=== PATIENT | female | born 1950 | race Caucasian/White ===

== ENCOUNTER 2019-05-16 16:24 | Inpatient (IN) | payer MEDICARE ==
[2019-05-16] MEDS: Sodium Chloride 0.9% 1,000 ML IV SCH ×2 (16:25→19:30)
[2019-05-16] MEDS ORDERED: Aspirin Chewable 81 MG TAB ONE (17:08)
[2019-05-16] MEDS ORDERED: Acetaminophen 500 MG TAB ONE (17:08)
[2019-05-16 17:29] LABS: #Basophils 0.1 thou/uL (0.0-0.2); #Eosinphils 0.1 thou/uL (0.0-0.7); #Lymphocytes 1.5 thou/uL (1.20-3.40); #Monocytes 0.6 thou/uL (0.11-0.59); #Neutrophils 6.8 thou/uL (1.40-6.50); %Basophils 0.8 % (0.0-1.0); %Eosinophils 1.1 % (0.0-10.0); %Lymphocytes 16.6 % (21.0-51.0); %Monocytes 6.7 % (0.0-10.0); %Neutrophils 74.9 % (42.0-75.0); Hemoglobin 12.2 g/dL (12.0-16.0); Mean Corpuscular HGB CONC 32.7 g/dL (32.0-36.0); Mean Corpuscular Hemoglobin 28.7 pg (27.0-31.0); Mean Corpuscular Volume 87.9 fL (78.0-98.0); Mean Platelet Volume 6.5 fL (7.4-10.4); Platelet Count 290 thou/uL (130-400); RBC Distribution Width 11.9 % (11.5-14.5); Red Blood Cell (RBC) Count 4.26 mill/uL (4.20-5.40)
[2019-05-16 17:31] LABS: ALT (SGPT) 11 U/L (8-55); AST (SGOT) 15 U/L (5-34); Albumin 3.7 g/dL (3.4-4.8); Alkaline Phosphatase 69 U/L (40-150); Anion Gap 14 mmol/L (10-20); BUN (Urea Nitrogen) 12 mg/dL (9.8-20.1); Bilirubin, Total 0.4 mg/dL (0.2-1.2); Calc. Creatinine Clearance 0 mL/min (70-130); Calcium 9.2 mg/dL (7.8-10.44); Carbon Dioxide 28 mmol/L (23-31); Chloride 99 mmol/L (98-107); Estimated GFR-MDRD 73; Globulin 3.6 g/dL (2.4-3.5); Glucose 111 mg/dL (80-115); Lipase 6 U/L (8-78); Protein, Total 7.3 g/dL (6.0-8.3); Sodium 138 mmol/L (136-145)
[2019-05-16] MEDS ORDERED: cefTRIAXone\\ROCEPHIN 1 GM VIAL ONE (18:07)
[2019-05-16] MEDS ORDERED: Sodium Chloride 0.9% 100 ML ONE (18:07)
[2019-05-16] MEDS ORDERED: Azithromycin 500 MG VIAL ONE (18:32)
[2019-05-16] MEDS ORDERED: Promethazine 25 MG TAB ONE (18:53)
--- NOTE | 2019-05-16 20:42 | RAD ---
PORTABLE CHEST: 05/16/19 There is an infiltrate in the right lung, most likely in the superior segment of the right lower lobe . It might be in the base of the right upper lobe. It is somewhat peripheral in location. The right h ilum is a little prominent, but this could be due to some slightly enlarged nodes or a prominent pulm onary artery. Pneumonia is presumed for the moment, but this must be followed to complete resolution to be sure that there is no underlying pathology. Additionally, there is a little streaking adjacent to the cardiac apex, so I cannot exclude a small lingular infiltrate either. Less likely would be an infiltrate due to pulmonary embolism given its peripheral nature. IMPRESSION: Presumed pneumonia in the right lung and possibly the lingula. Follow-up to complete resolution will be very important in this patient. If it does not resolve adequately, then a CT will be needed to exc lude underlying pathology. Code T POS: HOME
[2019-05-16] MEDS: ALPRAZolam 0.5 MG TAB PO SCH (21:21)
[2019-05-16] MEDS: Famotidine 20 MG TAB PO SCH (21:21)
[2019-05-16] MEDS ORDERED: Acetaminophen 325 MG TAB PO PRN (21:45)
[2019-05-16] MEDS ORDERED: Ondansetron ODT 4 MG TAB SL PRN (21:45)
[2019-05-16] MEDS ORDERED: Ondansetron PF 4 MG/2 ML Vial IVP PRN (21:45)
[2019-05-16 22:23] VITALS: BMI 43.4
[2019-05-17] MEDS: HYDROcodone/Acetaminophen 10/325 mg Tablet PO PRN ×4 (00:11→18:06)
[2019-05-17] MEDS: Sodium Chloride 0.9% 1,000 ML IV SCH (01:31)
[2019-05-17 05:59] LABS: #Basophils 0.1 thou/uL (0.0-0.2); #Eosinphils 0.3 thou/uL (0.0-0.7); #Lymphocytes 1.5 thou/uL (1.20-3.40); #Monocytes 0.8 thou/uL (0.11-0.59); #Neutrophils 5.3 thou/uL (1.40-6.50); %Basophils 1.5 % (0.0-1.0); %Eosinophils 4.2 % (0.0-10.0); %Lymphocytes 18.2 % (21.0-51.0); %Monocytes 10.4 % (0.0-10.0); %Neutrophils 65.6 % (42.0-75.0); Hemoglobin 10.3 g/dL (12.0-16.0); Mean Corpuscular HGB CONC 32.3 g/dL (32.0-36.0); Mean Corpuscular Hemoglobin 28.6 pg (27.0-31.0); Mean Corpuscular Volume 88.3 fL (78.0-98.0); Platelet Count 285 thou/uL (130-400); Red Blood Cell (RBC) Count 3.59 mill/uL (4.20-5.40); White Blood Cell (WBC) Count 8.1 thou/uL (4.8-10.8)
[2019-05-17] MEDS: Mometasone/Formoterol 60 PUFF AER INH SCH ×2 (06:02→21:20)
[2019-05-17 06:11] LABS: ALT (SGPT) 10 U/L (8-55); AST (SGOT) 11 U/L (5-34); Alkaline Phosphatase 57 U/L (40-150); Anion Gap 12 mmol/L (10-20); BUN (Urea Nitrogen) 8 mg/dL (9.8-20.1); Bilirubin, Total 0.2 mg/dL (0.2-1.2); Calc. Creatinine Clearance 138 mL/min (70-130); Calcium 8.2 mg/dL (7.8-10.44); Carbon Dioxide 28 mmol/L (23-31); Chloride 103 mmol/L (98-107); Estimated GFR-MDRD 90; Glucose 93 mg/dL (80-115); Magnesium 1.5 mg/dL (1.6-2.6); Potassium 3.1 mmol/L (3.5-5.1); Sodium 140 mmol/L (136-145)
[2019-05-17] MEDS: ALPRAZolam 0.5 MG TAB PO SCH ×2 (09:24→21:19)
[2019-05-17] MEDS: Saccharomyces boulardii 250 MG CAP PO SCH (09:25)
[2019-05-17] MEDS: DULoxetine 30 MG CAP PO SCH (09:25)
[2019-05-17] MEDS: Hydrochlorothiazide 25 MG TAB PO SCH (09:25)
[2019-05-17] MEDS: Famotidine 20 MG TAB PO SCH ×2 (09:25→21:19)
[2019-05-17] MEDS: Aspirin Chewable 81 MG TAB PO SCH (09:25)
[2019-05-17] MEDS: Lisinopril 20 MG TAB PO SCH (09:26)
[2019-05-17] MEDS ORDERED: Potassium Chloride 20 MEQ TAB PO SCH (09:45)
--- NOTE | 2019-05-17 10:34 | HP ---
CHIEF COMPLAINT: Pneumonia. HISTORY OF PRESENT ILLNESS: A 68-year-old female presented to the [facility] Emergency Department yesterday afternoon with complaints of an intermittent fever, headache, and productive cough that has been present for the last week; she reports the T-max to be 102.3. She does have a history of asthma and has noticed to have wheezing. She reports to have developed chest pain and in conjunction with her worsening upper respiratory symptoms, this prompted her to come to the emergency department. Prior to arrival, her home treatment included Mucinex, Tylenol, and ibuprofen. Workup in the emergency department showed the patient to be febrile with an initial temperature of 101.3, tachycardic at 111 with oxygenation at 91 % on room air. Her chest x-ray was consistent with pneumonia and thus she was provided IV azithromycin and ceftriaxone. She was also started on intravenous fluids. Her lab work was reassuring with no leukocytosis, but she did have noted low potassium level at 3.0. The patient was subsequently admitted to the floor for further care for community-acquired pneumonia. As of this morning, she does report to be feeling a little bit better. She remained afebrile overnight and her vital signs have stabilized. She reports to typically reside in the [place], [place] with her primary care provider in [place]. However, she is currently staying with her sister here with plans to move here locally. She has good insight into her reason for admission for her community-acquired pneumonia. PAST MEDICAL HISTORY: Includes anxiety and depression, history of non-Hodgkin lymphoma, hypertension, asthma, chronic pain related to spinal stenosis, fibromyalgia, degenerative disk disease, and osteoarthritis of her knees. 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 SOCIAL HISTORY: Rare EtOH use. She is a nonsmoker with no illicit drug use. FAMILY HISTORY: Heart disease and diabetes mellitus in her mother and father, who are . ALLERGIES: MEPERIDINE, METOPROLOL, PREGABALIN, STATIN, AND SULFA DRUGS. CURRENT MEDICATIONS: Butrans patch once weekly, hydrocodone 10/325 q.6 hours p.r.n., DuoNeb q.4 hours p.r.n., Advair Diskus 100/50 b.i.d., aspirin 81 mg daily, Phenergan 25 mg q.6 hours as needed, lisinopril/hydrochlorothiazide 20/25 mg daily, Xanax 0.5 mg twice a day, and duloxetine 60 mg daily. REVIEW OF SYSTEMS: GENERAL: The patient reports recent fever along with chills and diaphoresis. EARS, NOSE, AND THROAT: Denies sore throat, nasal drainage, or congestion. CARDIOVASCULAR: Denies palpitations, but she has had recent chest pain. RESPIRATORY: Reports to have wheezing and cough. GASTROINTESTINAL: Denies abdominal pain, nausea, vomiting, diarrhea, or constipation. GENITOURINARY: Denies dysuria. MUSCULOSKELETAL: Complains of chronic joint pain, musculoskeletal pain, and back pain. DERM: Denies rash. NEUROLOGIC: Complains of recent headache. LABORATORY DATA: White blood cell count is 8.1, H and H are 10.3 and 31.7, platelets are 285. Sodium is 140, potassium is 3.1, BUN is 8, creatinine 0.66, GFR is 90, glucose 93, magnesium is low at 1.5, AST 11, ALT 10. Her troponins were less than 0.010. BNP 34.9. Lipase was 6. Her lactic acid level was normal at 1.3. IMAGING: Chest x-ray on 05/16/2019 showed presumed pneumonia in the right lung and possibly the lingula. Followup to complete resolution will be very important in this patient. If it does not resolve adequately, then a CT will be needed to exclude underlying pathology. PHYSICAL EXAMINATION: VITAL SIGNS: Temperature is 98.6, pulse is 88, respiratory rate is 16, oxygen saturation is 94% on room air, blood pressure is 148/72. GENERAL: The patient is alert and oriented, in no acute distress. She is obese. HEAD, EYES, EARS, NOSE, AND THROAT: Normocephalic and atraumatic. Extraocular muscles are intact bilaterally. Sclerae are clear. She is wearing glasses. She has dry mucous membrane. She has poor dentition. NECK: Supple with no lymphadenopathy. CARDIOVASCULAR: Regular rate and rhythm. Normal S1 and S2. No murmurs, rubs, or gallops. RESPIRATORY: She has expiratory wheezes with scattered crackles. She has no respiratory distress. ABDOMEN: Soft, nontender to palpation. No rebound or guarding. DERM: No rashes. EXTREMITIES: No clubbing, cyanosis, or edema. NEUROLOGIC: Nonfocal with cranial nerves 2 through 12 grossly intact. BACK: She has pain with active and passive range of motion of her lumbar spine and decreased range of motion. ASSESSMENT AND PLAN: 1. Community-acquired pneumonia. The patient will be continued on IV Rocephin and azithromycin at this time. We will trend her lab work and repeat her chest x- ray as advised. 2. Asthma. The patient has been provided an incentive spirometer. She will be continued on Dulera and provided DuoNeb treatments as needed. 3. Hypertension. The patient is hemodynamically stable. We will resume her home blood pressure medications. 4. Anxiety and depression. We will resume the patient's duloxetine and Xanax. 5. History of non-Hodgkin lymphoma. The patient has had prior chemotherapy and tumor resection from her small intestine in 2002. She has been in remission since that time. As stated per the patient's chest x-ray, we can pursue a CT scan as indicated pending followup chest x-ray. 6. Chronic pain syndrome with degenerative disk disease. We will resume the patient's home pain medications. 7. Hypokalemia. We will replete the patient's potassium and start her on magnesium supplementation. 8. Prophylaxis. The patient will be started on Lovenox for deep venous thrombosis prophylaxis along with famotidine and probiotic for gastrointestinal prophylaxis. CODE STATUS: Full. DISPOSITION: The patient will be discharged home after her cultures have been completed and she shows advised improvement in her noted pneumonia. Job ID: [id number] MTDD
[2019-05-17] MEDS: cefTRIAXone\\ROCEPHIN 1 GM in Sodium Chloride 0.9% 100 ML IVPB SCH (17:47)
[2019-05-17] MEDS: Potassium Chloride 20 MEQ TAB PO SCH (17:58)
[2019-05-17] MEDS: Azithromycin 500 MG in Sodium Chloride 0.9% 250 ML 250 ML IVPB SCH (18:00)
[2019-05-17] MEDS: Promethazine 25 MG TAB PO PRN (18:12)
[2019-05-17] MEDS: Enoxaparin Sodium 40 MG/0.4 ML SYRINGE SC SCH (21:19)
[2019-05-18] MEDS: HYDROcodone/Acetaminophen 10/325 mg Tablet PO PRN ×4 (00:11→18:36)
[2019-05-18] MEDS: Mometasone/Formoterol 60 PUFF AER INH SCH ×2 (06:08→18:22)
[2019-05-18 06:32] LABS: #Basophils 0.1 thou/uL (0.0-0.2); #Eosinphils 0.4 thou/uL (0.0-0.7); #Lymphocytes 1.5 thou/uL (1.20-3.40); #Monocytes 0.7 thou/uL (0.11-0.59); #Neutrophils 3.7 thou/uL (1.40-6.50); %Basophils 1.9 % (0.0-1.0); %Eosinophils 5.6 % (0.0-10.0); %Lymphocytes 23.5 % (21.0-51.0); %Monocytes 10.4 % (0.0-10.0); %Neutrophils 58.6 % (42.0-75.0); Mean Corpuscular HGB CONC 31.9 g/dL (32.0-36.0); Mean Corpuscular Hemoglobin 28.5 pg (27.0-31.0); Mean Corpuscular Volume 89.3 fL (78.0-98.0); Mean Platelet Volume 6.2 fL (7.4-10.4); Platelet Count 306 thou/uL (130-400); Red Blood Cell (RBC) Count 3.86 mill/uL (4.20-5.40); White Blood Cell (WBC) Count 6.4 thou/uL (4.8-10.8)
[2019-05-18 06:40] LABS: Anion Gap 13 mmol/L (10-20); BUN (Urea Nitrogen) 8 mg/dL (9.8-20.1); Calc. Creatinine Clearance 134 mL/min (70-130); Calcium 8.7 mg/dL (7.8-10.44); Carbon Dioxide 30 mmol/L (23-31); Chloride 100 mmol/L (98-107); Estimated GFR-MDRD 87; Glucose 91 mg/dL (80-115); Potassium 3.3 mmol/L (3.5-5.1); Sodium 140 mmol/L (136-145)
[2019-05-18] MEDS: Aspirin Chewable 81 MG TAB PO SCH (09:10)
[2019-05-18] MEDS: DULoxetine 30 MG CAP PO SCH (09:10)
[2019-05-18] MEDS: Potassium Chloride 20 MEQ TAB PO SCH ×2 (09:10→18:20)
[2019-05-18] MEDS: Lisinopril 20 MG TAB PO SCH (09:11)
[2019-05-18] MEDS: ALPRAZolam 0.5 MG TAB PO SCH ×2 (09:11→21:05)
[2019-05-18] MEDS: Hydrochlorothiazide 25 MG TAB PO SCH (09:11)
[2019-05-18] MEDS: Saccharomyces boulardii 250 MG CAP PO SCH (09:11)
[2019-05-18] MEDS: Magnesium Oxide 400 MG TAB PO SCH (09:11)
[2019-05-18] MEDS: Famotidine 20 MG TAB PO SCH ×2 (09:12→21:05)
[2019-05-18] MEDS ORDERED: Docusate 100 MG CAP PO PRN (10:44)
--- NOTE | 2019-05-18 12:35 | RAD ---
CHEST TWO VIEWS: 05/18/2019 COMPARISON: 05/16/2019 FINDINGS: The right-sided infiltrate is perhaps not quite as dense as before, but it is still rather significan t in coverage. The left lung is mostly clear, except for some lingular streaking. There are no effu sions. IMPRESSION: 1. Right-sided consolidation, perhaps with very slight improvement since 05/18/2019. 2. Presumed lingular infiltrate. COMMENT: The findings are mainly consistent with pneumonia. Again, because the right-sided infiltrate is some what peripheral and slightly wedge-shaped, pulmonary embolism and infarction are also theoretically i n the differential diagnosis. The clinical presentation would dictate which way one would lean. As stated on the prior report, following the patient to complete resolution will be important. CODE T POS: HOME
[2019-05-18] MEDS: Promethazine 25 MG TAB PO PRN ×2 (13:36→21:05)
[2019-05-18] MEDS: cefTRIAXone\\ROCEPHIN 1 GM in Sodium Chloride 0.9% 100 ML IVPB SCH (18:25)
[2019-05-18] MEDS: Azithromycin 500 MG in Sodium Chloride 0.9% 250 ML 250 ML IVPB SCH (18:26)
[2019-05-18] MEDS: Enoxaparin Sodium 40 MG/0.4 ML SYRINGE SC SCH (21:05)
[2019-05-19] MEDS: HYDROcodone/Acetaminophen 10/325 mg Tablet PO PRN ×4 (01:24→19:54)
[2019-05-19] MEDS: Mometasone/Formoterol 60 PUFF AER INH SCH ×2 (05:29→18:04)
[2019-05-19 05:58] LABS: Anion Gap 14 mmol/L (10-20); BUN (Urea Nitrogen) 9 mg/dL (9.8-20.1); Calc. Creatinine Clearance 134 mL/min (70-130); Calcium 8.8 mg/dL (7.8-10.44); Carbon Dioxide 30 mmol/L (23-31); Chloride 101 mmol/L (98-107); Estimated GFR-MDRD 87; Glucose 95 mg/dL (80-115); Potassium 3.8 mmol/L (3.5-5.1); Sodium 141 mmol/L (136-145)
[2019-05-19 06:07] LABS: Hemoglobin 10.5 g/dL (12.0-16.0); Mean Corpuscular HGB CONC 32.6 g/dL (32.0-36.0); Mean Corpuscular Hemoglobin 28.6 pg (27.0-31.0); Mean Corpuscular Volume 87.7 fL (78.0-98.0); Mean Platelet Volume 5.6 fL (7.4-10.4); Platelet Count 355 thou/uL (130-400); RBC Distribution Width 11.9 % (11.5-14.5); Red Blood Cell (RBC) Count 3.69 mill/uL (4.20-5.40); White Blood Cell (WBC) Count 6.5 thou/uL (4.8-10.8)
[2019-05-19 06:27] LABS: Eosinophils 4 % (0-10); Lymphocytes 29 % (21-51); MDiff Complete? YES; Monocytes 12 % (0-10); Neutrophil 54 % (42-75); Platelet Morphology Comment Appears Adequate; RBC Morphology Normal
[2019-05-19] MEDS ORDERED: Potassium Chloride 20 MEQ TAB PO SCH (07:15)
[2019-05-19] MEDS: DULoxetine 30 MG CAP PO SCH (08:00)
[2019-05-19] MEDS: Saccharomyces boulardii 250 MG CAP PO SCH (08:00)
[2019-05-19] MEDS: Magnesium Oxide 400 MG TAB PO SCH (08:00)
[2019-05-19] MEDS: Lisinopril 20 MG TAB PO SCH (08:00)
[2019-05-19] MEDS: Hydrochlorothiazide 25 MG TAB PO SCH (08:00)
[2019-05-19] MEDS: Aspirin Chewable 81 MG TAB PO SCH (08:01)
[2019-05-19] MEDS: Famotidine 20 MG TAB PO SCH ×2 (08:01→20:37)
[2019-05-19] MEDS: ALPRAZolam 0.5 MG TAB PO SCH ×2 (08:01→20:37)
--- NOTE | 2019-05-19 08:04 | CT ---
CT THORAX NONCONTRAST: DATE: 05/19/2019 HISTORY: 68-year-old female with abnormal chest radiograph COMPARISON: no prior CT's FINDINGS: Unable to obtain IV access. Lack of IV contrast media makes it very difficult to evaluate for hilar m ass or lymphadenopathy. There is a moderately large wedge-shaped consolidation in the right upper lobe, from the right hilum to the lateral pleural surface. There is air bronchogram within the consolidation. Several nonspecific mildly enlarged mediastinal lymph nodes. Trachea and the left and right mainstem bronchi are patent and clear. Tiny right pleural effusion. No pleural effusion on the left side. No thoracic aortic aneurysm, cardiomegaly, or pericardial effusion. IMPRESSION: 1. Moderately large right upper lobe consolidation, most likely representing pneumonia. 2. Recommend serial follow-up chest radiographs (beginning in a few days) until complete resolution t o rule out underlying mass as the cause.
[2019-05-19] MEDS: Potassium Chloride 20 MEQ TAB PO SCH (09:00)
[2019-05-19] MEDS ORDERED: BUTRANS 20 MCG/HR TOP SCH (13:30)
[2019-05-19] MEDS: cefTRIAXone\\ROCEPHIN 1 GM in Sodium Chloride 0.9% 100 ML IVPB SCH (17:07)
[2019-05-19] MEDS: Azithromycin 500 MG in Sodium Chloride 0.9% 250 ML 250 ML IVPB SCH (17:08)
[2019-05-19] MEDS: Promethazine 25 MG TAB PO PRN (17:58)
[2019-05-19] MEDS: Enoxaparin Sodium 40 MG/0.4 ML SYRINGE SC SCH (20:38)
[2019-05-20] MEDS: HYDROcodone/Acetaminophen 10/325 mg Tablet PO PRN ×4 (02:18→21:47)
[2019-05-20] MEDS: Mometasone/Formoterol 60 PUFF AER INH SCH ×2 (05:56→17:59)
[2019-05-20 06:34] LABS: #Basophils 0.1 thou/uL (0.0-0.2); #Eosinphils 0.4 thou/uL (0.0-0.7); #Lymphocytes 1.7 thou/uL (1.20-3.40); #Monocytes 0.7 thou/uL (0.11-0.59); %Eosinophils 5.5 % (0.0-10.0); %Lymphocytes 24.9 % (21.0-51.0); %Monocytes 9.8 % (0.0-10.0); %Neutrophils 57.7 % (42.0-75.0); Hemoglobin 10.7 g/dL (12.0-16.0); Mean Corpuscular HGB CONC 32.7 g/dL (32.0-36.0); Mean Corpuscular Hemoglobin 28.6 pg (27.0-31.0); Mean Corpuscular Volume 87.5 fL (78.0-98.0); Mean Platelet Volume 5.8 fL (7.4-10.4); Platelet Count 391 thou/uL (130-400); RBC Distribution Width 12.1 % (11.5-14.5); Red Blood Cell (RBC) Count 3.76 mill/uL (4.20-5.40); White Blood Cell (WBC) Count 6.9 thou/uL (4.8-10.8)
[2019-05-20 06:38] LABS: Anion Gap 14 mmol/L (10-20); BUN (Urea Nitrogen) 10 mg/dL (9.8-20.1); Calc. Creatinine Clearance 127 mL/min (70-130); Carbon Dioxide 29 mmol/L (23-31); Chloride 99 mmol/L (98-107); Estimated GFR-MDRD 81; Glucose 95 mg/dL (80-115); Potassium 4.1 mmol/L (3.5-5.1); Sodium 138 mmol/L (136-145)
[2019-05-20] MEDS: Lisinopril 20 MG TAB PO SCH (08:31)
[2019-05-20] MEDS: Magnesium Oxide 400 MG TAB PO SCH (08:31)
[2019-05-20] MEDS: DULoxetine 30 MG CAP PO SCH (08:32)
[2019-05-20] MEDS: Famotidine 20 MG TAB PO SCH ×2 (08:32→20:55)
[2019-05-20] MEDS: ALPRAZolam 0.5 MG TAB PO SCH ×2 (08:32→20:56)
[2019-05-20] MEDS: Potassium Chloride 20 MEQ TAB PO SCH (08:33)
[2019-05-20] MEDS: Hydrochlorothiazide 25 MG TAB PO SCH (08:33)
[2019-05-20] MEDS: Aspirin Chewable 81 MG TAB PO SCH (08:33)
[2019-05-20] MEDS: Saccharomyces boulardii 250 MG CAP PO SCH (08:33)
[2019-05-20] MEDS ORDERED: guaiFENesin/DM ER PO SCH (09:00)
[2019-05-20] MEDS ORDERED: BUPRENORPHINE 20 MCG/HR TOP SCH (09:00)
[2019-05-20] MEDS ORDERED: guaiFENesin ER 600 MG TAB PO SCH (11:45)
[2019-05-20] MEDS: cefTRIAXone\\ROCEPHIN 1 GM in Sodium Chloride 0.9% 100 ML IVPB SCH (17:44)
[2019-05-20] MEDS: Azithromycin 500 MG in Sodium Chloride 0.9% 250 ML 250 ML IVPB SCH (17:54)
[2019-05-20] MEDS: guaiFENesin ER 600 MG TAB PO SCH (20:55)
[2019-05-20] MEDS: Enoxaparin Sodium 40 MG/0.4 ML SYRINGE SC SCH (20:56)
[2019-05-21] MEDS: HYDROcodone/Acetaminophen 10/325 mg Tablet PO PRN ×4 (04:06→22:48)
[2019-05-21] MEDS: Mometasone/Formoterol 60 PUFF AER INH SCH ×2 (06:17→18:31)
[2019-05-21] MEDS: Potassium Chloride 20 MEQ TAB PO SCH (09:21)
[2019-05-21] MEDS: DULoxetine 30 MG CAP PO SCH (09:21)
[2019-05-21] MEDS: Saccharomyces boulardii 250 MG CAP PO SCH (09:21)
[2019-05-21] MEDS: guaiFENesin ER 600 MG TAB PO SCH ×2 (09:21→21:09)
[2019-05-21] MEDS: Hydrochlorothiazide 25 MG TAB PO SCH (09:21)
[2019-05-21] MEDS: Famotidine 20 MG TAB PO SCH ×2 (09:21→21:09)
[2019-05-21] MEDS: Lisinopril 20 MG TAB PO SCH (09:22)
[2019-05-21] MEDS: ALPRAZolam 0.5 MG TAB PO SCH ×2 (09:22→21:09)
[2019-05-21] MEDS: Magnesium Oxide 400 MG TAB PO SCH (09:22)
[2019-05-21] MEDS: Aspirin Chewable 81 MG TAB PO SCH (09:22)
[2019-05-21] MEDS: cefTRIAXone\\ROCEPHIN 1 GM in Sodium Chloride 0.9% 100 ML IVPB SCH (16:53)
[2019-05-21] MEDS: Azithromycin 500 MG in Sodium Chloride 0.9% 250 ML 250 ML IVPB SCH (20:01)
[2019-05-21] MEDS: Enoxaparin Sodium 40 MG/0.4 ML SYRINGE SC SCH (21:16)
[2019-05-22] MEDS: HYDROcodone/Acetaminophen 10/325 mg Tablet PO PRN ×2 (05:35→11:32)
[2019-05-22] MEDS: Mometasone/Formoterol 60 PUFF AER INH SCH (05:41)
[2019-05-22 06:34] VITALS: TEMP 98
--- NOTE | 2019-05-22 07:47 | RAD ---
EXAM: Chest 2 views: HISTORY: Pneumonia COMPARISON: 05/18/2019 FINDINGS: There is a normal-sized cardiomediastinal silhouette. There is slight improvement in the consolidati on in the inferior aspect of the right upper lobe. No pleural effusion is seen. The bones are unremarkable. IMPRESSION: Improvement in right upper lobe pneumonia.
[2019-05-22] MEDS: Potassium Chloride 20 MEQ TAB PO SCH (09:28)
[2019-05-22] MEDS: guaiFENesin ER 600 MG TAB PO SCH (09:28)
[2019-05-22] MEDS: Famotidine 20 MG TAB PO SCH (09:28)
[2019-05-22] MEDS: Magnesium Oxide 400 MG TAB PO SCH (09:28)
[2019-05-22] MEDS: Saccharomyces boulardii 250 MG CAP PO SCH (09:28)
[2019-05-22] MEDS: DULoxetine 30 MG CAP PO SCH (09:28)
[2019-05-22] MEDS: Lisinopril 20 MG TAB PO SCH (09:28)
[2019-05-22] MEDS: Aspirin Chewable 81 MG TAB PO SCH (09:29)
[2019-05-22] MEDS: ALPRAZolam 0.5 MG TAB PO SCH (09:29)
[2019-05-22] MEDS: Hydrochlorothiazide 25 MG TAB PO SCH (09:29)
[2019-05-22 09:30] VITALS: BP 120/66
--- NOTE | 2019-05-23 10:49 | DIS ---
DATE OF ADMISSION: 05/16/2019 DATE OF DISCHARGE: 05/22/2019 ADMISSION DIAGNOSIS: Community-acquired pneumonia. SECONDARY DIAGNOSES: Asthma, hypertension, anxiety with depression, history of non-Hodgkin lymphoma, chronic pain syndrome with fibromyalgia and degenerative disk disease, and hypokalemia. PROCEDURES: 05/16/2019, chest x-ray showed presumed pneumonia in the right lung and possibly the lingula. Followup to complete resolution will be very important in this patient. If it does not resolve adequately, then a CT will be needed to exclude underlying pathology. 05/18/2019 chest x-ray showed right-sided consolidation, perhaps, with very slight improvement since 05/18/2019 presumed lingular infiltrate. The findings are mainly consistent with pneumonia again because the right-sided infiltrate is somewhat peripheral and slightly wedge-shaped. Pulmonary embolism and infarction are also theoretically in the differential diagnosis. Clinical presentation would dictate which way one would mean. As stated on the prior report, following the patient to complete resolution will be important. 05/19/[address] showed moderately large right upper lobe consolidation, most likely representing pneumonia. Recommend serial followup chest radiographs beginning in a few days until complete resolution to rule out underlying mass as the cause. 05/22/2019 chest x-ray showed improvement in right upper lobe pneumonia. HOSPITAL COURSE: A 68-year-old female presented to the [facility] Emergency Department with complaints of fever, headache, productive cough with a T-max of 102.3, present over the last week. Subsequent imaging revealed as above. The patient does have a history of asthma and was notably wheezing. She was started on IV azithromycin and ceftriaxone. She was able to defervesce and she showed no evidence of leukocytosis. She did have a low potassium, which was corrected with supplemental potassium. The patient has received regular nebulized treatments and physical therapy was initiated to improve her functional status. Due to her improvement in imaging after several days of antibiotics, it has been decided for her to discharge home with an oral course of antibiotics and then follow up with myself in the clinic in a week for repeat chest x-ray. She is amenable to this plan and to discharge at this time. DISPOSITION: The patient will discharge home where she lives with her . They may follow up with myself in the clinic in a week. DISCHARGE MEDICATIONS: Include; 1. Tylenol 650 p.r.n. 2. DuoNeb q.4 hours p.r.n. 3. [place] 10/325 q.6 hours p.r.n. 4. Butrans patch weekly. 5. Advair Diskus inhaled b.i.d. 6. Aspirin 81 mg daily. 7. Phenergan 25 mg q.6 hours as needed. 8. Lisinopril/hydrochlorothiazide 20/25 mg daily. 9. Alprazolam 0.5 mg b.i.d. 10. Cymbalta 60 mg daily. 11. Hydrochlorothiazide 25 mg daily. 12. The patient may supplement magnesium oxide 400 mg daily and she will be sent home on Keflex 500 mg p.o. b.i.d. x7 days and azithromycin 250 mg daily x5 days. Job ID: [id number]
== END 2019-05-22 02:40 | disposition home or self-care (01) | DRG 195 ==
LOC: BURERS 16:24 → BURMED 18:20 → UNDOADMIN 19:51 → BURMED 19:51
PROVIDERS: ADMIT Family Medicine; ATTEND Family Medicine
DX: J18.9 Pneumonia, unspecified organism (principal); J45.909 Unspecified asthma, uncomplicated; I10 Essential (primary) hypertension; F41.9 Anxiety disorder, unspecified; F32.9 Major depressive disorder, single episode, unspecified; G89.4 Chronic pain syndrome; E87.6 Hypokalemia; M79.7 Fibromyalgia; M17.0 Bilateral primary osteoarthritis of knee; Z85.72 Personal history of non-Hodgkin lymphomas; Z92.21 Personal history of antineoplastic chemotherapy; Z88.2 Allergy status to sulfonamides; Z88.8 Allergy status to other drugs, medicaments and biological substances; Z79.82 Long term (current) use of aspirin
CPT/HCPCS: 36415; 71045; 71046; 71250; 80048; 80053; 83605; 83690; 83735; 83880; 84484; 85025; 87040; 87804; 93005; 94664; 96361; 96365; 96367; J0456; J0696; J1650; J3490; J7050; J7620; Q0169

== ENCOUNTER 2019-05-29 15:29 | Outpatient (CLI) | payer MEDICARE ==
--- NOTE | 2019-05-29 19:58 | RAD ---
CHEST TWO VIEWS: 05/29/19 Comparison is made with a 05/22/19 study. There has been considerable improvement now in the interval regarding the right upper lobe consolidation. There is still a small amount of lingular streaking. Th ere are no large effusions or new infiltrates. IMPRESSION: Considerable improvement in the right upper lobe consolidation since 05/22/19. This is very comforting . I would recommend doing one final chest x-ray, perhaps in one month final check. Code T POS: HOME
== END 2019-05-29 15:30 | disposition home or self-care (01) ==
LOC: BURRAD 15:29
PROVIDERS: ATTEND Family Medicine
DX: J18.9 Pneumonia, unspecified organism (principal)
CPT/HCPCS: 71046

== ENCOUNTER 2019-07-03 15:01 | Outpatient (CLI) | payer MEDICARE ==
--- NOTE | 2019-07-03 20:54 | RAD ---
CHEST TWO VIEWS: 07/03/19 Comparison is made with an 05/29/19 study. The patchy infiltrative area in the right upper lobe has vir tually resolved. There is minimal residual remaining. No new infiltrates were seen. No effusions were apparent. The heart size is normal. IMPRESSION: Nearly complete resolution of the right upper lobe pneumonia. There is only minor streaking remaining that may be scar. POS: HOME
--- NOTE | 2019-07-03 20:55 | RAD ---
LEFT HUMERUS TWO VIEWS: 07/03/19 Bony spurring is seen at the glenohumeral joint. No fracture or dislocation was seen. The AC joint is not wide. 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 POS: HOME
--- NOTE | 2019-07-03 20:57 | RAD ---
LEFT SHOULDER THREE VIEWS: 07/03/19 As on the humeral films, one sees bony spurring at the glenohumeral joint and there is some sclerosis of both the glenoid fossa and humeral head. The AC joint is not wide. No fractures were seen. IMPRESSION: Degenerative changes of the glenohumeral joint. POS: HOME
== END 2019-07-03 15:02 | disposition home or self-care (01) ==
LOC: BURRAD 15:01 → EEVIPCON 15:01 → BURRAD 15:02
PROVIDERS: ATTEND Family Medicine
DX: J18.1 Lobar pneumonia, unspecified organism (principal); M79.602 Pain in left arm; M19.012 Primary osteoarthritis, left shoulder
CPT/HCPCS: 71046

== ENCOUNTER 2020-07-22 14:13 | Inpatient (IN) | payer MEDICARE, OTHER ==
[2020-07-22 16:56] VITALS: BMI 37.5
[2020-07-22] MEDS ORDERED: tiZANidine HCl 4 MG TAB PO PRN (17:46)
[2020-07-22] MEDS: HYDROcodone/Acetaminophen 10/325 mg Tablet PO PRN ×2 (18:35→23:12)
[2020-07-22] MEDS: Promethazine 25 MG TAB PO PRN (18:37)
[2020-07-22] MEDS: Docusate 100 MG CAP PO SCH (21:04)
[2020-07-22] MEDS: Mometasone/Formoterol 60 PUFF AER INH SCH (21:04)
[2020-07-22] MEDS: ALPRAZolam 0.5 MG TAB PO PRN (21:21)
[2020-07-23] MEDS: HYDROcodone/Acetaminophen 10/325 mg Tablet PO PRN ×5 (03:33→23:54)
[2020-07-23] MEDS: Promethazine 25 MG TAB PO PRN ×3 (03:33→23:55)
[2020-07-23] MEDS: Polyethylene Glycol 3350 17 GM Packet PO PRN (08:49)
[2020-07-23] MEDS: Mometasone/Formoterol 60 PUFF AER INH SCH ×2 (08:50→21:09)
[2020-07-23] MEDS: Lisinopril 20 MG TAB PO SCH (08:54)
[2020-07-23] MEDS: Potassium Chloride 10 MEQ TAB PO SCH (08:54)
[2020-07-23] MEDS: DULoxetine 30 MG CAP PO SCH (08:54)
[2020-07-23] MEDS: Docusate 100 MG CAP PO SCH ×2 (08:55→21:09)
[2020-07-23] MEDS: Hydrochlorothiazide 25 MG TAB PO SCH (08:55)
[2020-07-23] MEDS: Aspirin 325 MG TAB PO SCH (08:55)
[2020-07-23] MEDS: Ondansetron ODT 4 MG TAB SL PRN ×2 (09:04→19:22)
[2020-07-23 12:06] LABS: SARS-CoV-2 MS2 Positive; SARS-CoV-2 N Gene Negative; SARS-CoV-2 S Gene Negative; SARS-CoV-2 by NAA Not Detected (NotDetected); SARS-CoV-2 orf1ab Negative
[2020-07-23] MEDS ORDERED: Bisacodyl 10 MG SUPP PR PRN (16:00)
[2020-07-23] MEDS: ALPRAZolam 0.5 MG TAB PO PRN (21:08)
[2020-07-23] MEDS: Milk Of Magnesia 30 ML UDCUP PO PRN (21:08)
[2020-07-24] MEDS: HYDROcodone/Acetaminophen 10/325 mg Tablet PO PRN ×4 (08:39→20:54)
[2020-07-24] MEDS: Promethazine 25 MG TAB PO PRN ×2 (08:40→16:40)
[2020-07-24] MEDS: Aspirin 325 MG TAB PO SCH (08:40)
[2020-07-24] MEDS: Potassium Chloride 10 MEQ TAB PO SCH (08:40)
[2020-07-24] MEDS: Hydrochlorothiazide 25 MG TAB PO SCH (08:41)
[2020-07-24] MEDS: DULoxetine 30 MG CAP PO SCH (08:41)
[2020-07-24] MEDS: Docusate 100 MG CAP PO SCH ×2 (08:41→20:55)
[2020-07-24] MEDS: Polyethylene Glycol 3350 17 GM Packet PO PRN (08:41)
[2020-07-24] MEDS: Lisinopril 20 MG TAB PO SCH (08:41)
[2020-07-24] MEDS: Mometasone/Formoterol 60 PUFF AER INH SCH ×2 (12:36→20:55)
[2020-07-24] MEDS: Ondansetron ODT 4 MG TAB SL PRN ×2 (12:38→20:55)
[2020-07-24] MEDS: ALPRAZolam 0.5 MG TAB PO PRN (20:55)
[2020-07-25] MEDS: HYDROcodone/Acetaminophen 10/325 mg Tablet PO PRN ×6 (00:53→22:55)
[2020-07-25] MEDS: Promethazine 25 MG TAB PO PRN ×2 (00:53→10:06)
[2020-07-25] MEDS: Ondansetron ODT 4 MG TAB SL PRN ×3 (05:28→22:56)
[2020-07-25] MEDS: Polyethylene Glycol 3350 17 GM Packet PO PRN (08:41)
[2020-07-25] MEDS: Lisinopril 20 MG TAB PO SCH (08:42)
[2020-07-25] MEDS: Hydrochlorothiazide 25 MG TAB PO SCH (08:42)
[2020-07-25] MEDS: DULoxetine 30 MG CAP PO SCH (08:42)
[2020-07-25] MEDS: Aspirin 325 MG TAB PO SCH (08:42)
[2020-07-25] MEDS: Potassium Chloride 10 MEQ TAB PO SCH (08:42)
[2020-07-25] MEDS: Docusate 100 MG CAP PO SCH ×2 (08:42→20:58)
[2020-07-25] MEDS: Mometasone/Formoterol 60 PUFF AER INH SCH ×2 (08:43→20:58)
[2020-07-25] MEDS: ALPRAZolam 0.5 MG TAB PO PRN (20:58)
[2020-07-25] MEDS: Milk Of Magnesia 30 ML UDCUP PO PRN (20:58)
[2020-07-26] MEDS: HYDROcodone/Acetaminophen 10/325 mg Tablet PO PRN ×5 (03:09→20:41)
[2020-07-26] MEDS: Promethazine 25 MG TAB PO PRN ×3 (03:10→20:47)
[2020-07-26 07:51] LABS: ALT (SGPT) 19 U/L (8-55); AST (SGOT) 24 U/L (5-34); Albumin 3.2 g/dL (3.4-4.8); Alkaline Phosphatase 77 U/L (40-110); Anion Gap 15 mmol/L (10-20); BUN (Urea Nitrogen) 15 mg/dL (9.8-20.1); Bilirubin, Total 0.4 mg/dL (0.2-1.2); Calc. Creatinine Clearance 100 mL/min (70-130); Calcium 8.1 mg/dL (7.8-10.44); Carbon Dioxide 28 mmol/L (23-31); Chloride 98 mmol/L (98-107); Estimated GFR-MDRD 74; Globulin 2.7 g/dL (2.4-3.5); Glucose 141 mg/dL (80-115); Potassium 4.1 mmol/L (3.5-5.1); Protein, Total 5.9 g/dL (6.0-8.3); Sodium 137 mmol/L (136-145)
[2020-07-26] MEDS: Ondansetron ODT 4 MG TAB SL PRN ×2 (08:06→16:07)
[2020-07-26] MEDS: Aspirin 325 MG TAB PO SCH (08:07)
[2020-07-26 08:08] LABS: Anisocytosis SLIGHT = 6-15 cells (100X) (0-5/hpf); Basophilic Stippling SLIGHT = 1-2 cells (100X) (None Seen); Eosinophils 2 % (0-10); Hemoglobin 7.7 g/dL (12.0-16.0); Lymphocytes 17 % (21-51); MDiff Complete? YES; Macrocytosis SLIGHT = 6-15 cells (100X) (0-5/hpf); Mean Corpuscular HGB CONC 32.2 g/dL (32.0-36.0); Mean Corpuscular Hemoglobin 30.8 pg (27.0-31.0); Mean Corpuscular Volume 95.5 fL (78.0-98.0); Mean Platelet Volume 5.7 fL (7.4-10.4); Monocytes 6 % (0-10); Neutrophil 73 % (42-75); Nucleated RBC 2 % (0); Platelet Count 243 thou/uL (130-400); Platelet Morphology Comment PLT clumps seen-ADEQ; Polychromasia SLIGHT = 2-3 cells (100X) (0-2/hpf); RBC Distribution Width 14.3 % (11.5-14.5); Reactive Lymphocytes 1 % (0-10); White Blood Cell (WBC) Count 11.5 thou/uL (4.8-10.8)
[2020-07-26] MEDS: DULoxetine 30 MG CAP PO SCH (08:08)
[2020-07-26] MEDS: Docusate 100 MG CAP PO SCH ×2 (08:08→20:38)
[2020-07-26] MEDS: Potassium Chloride 10 MEQ TAB PO SCH (08:08)
[2020-07-26] MEDS: Lisinopril 20 MG TAB PO SCH (08:08)
[2020-07-26] MEDS: Hydrochlorothiazide 25 MG TAB PO SCH (08:08)
[2020-07-26] MEDS: Mometasone/Formoterol 60 PUFF AER INH SCH ×2 (08:11→20:38)
[2020-07-26] MEDS: Polyethylene Glycol 3350 17 GM Packet PO PRN (10:45)
[2020-07-26] MEDS: ALPRAZolam 0.5 MG TAB PO PRN (20:47)
[2020-07-26] MEDS: Melatonin 3 MG TAB PO PRN (20:50)
[2020-07-27] MEDS: Ondansetron ODT 4 MG TAB SL PRN ×3 (00:52→17:26)
[2020-07-27] MEDS: HYDROcodone/Acetaminophen 10/325 mg Tablet PO PRN ×6 (00:52→21:41)
[2020-07-27] MEDS: Promethazine 25 MG TAB PO PRN ×3 (04:47→21:42)
[2020-07-27] MEDS: Polyethylene Glycol 3350 17 GM Packet PO PRN (08:12)
[2020-07-27] MEDS: Potassium Chloride 10 MEQ TAB PO SCH (08:14)
[2020-07-27] MEDS: Lisinopril 20 MG TAB PO SCH (08:14)
[2020-07-27] MEDS: Docusate 100 MG CAP PO SCH ×2 (08:14→21:42)
[2020-07-27] MEDS: Hydrochlorothiazide 25 MG TAB PO SCH (08:14)
[2020-07-27] MEDS: Aspirin 325 MG TAB PO SCH (08:14)
[2020-07-27] MEDS: DULoxetine 30 MG CAP PO SCH (08:15)
[2020-07-27] MEDS: Mometasone/Formoterol 60 PUFF AER INH SCH ×2 (08:15→21:42)
[2020-07-27] MEDS: ALPRAZolam 0.5 MG TAB PO PRN (21:42)
[2020-07-27] MEDS: Milk Of Magnesia 30 ML UDCUP PO PRN (21:42)
[2020-07-27] MEDS: Melatonin 3 MG TAB PO PRN (21:42)
[2020-07-28] MEDS: HYDROcodone/Acetaminophen 10/325 mg Tablet PO PRN ×5 (01:43→21:54)
[2020-07-28] MEDS: Ondansetron ODT 4 MG TAB SL PRN ×3 (01:44→21:54)
[2020-07-28] MEDS: Milk Of Magnesia 30 ML UDCUP PO PRN (09:16)
[2020-07-28] MEDS: Hydrochlorothiazide 25 MG TAB PO SCH (09:17)
[2020-07-28] MEDS: DULoxetine 30 MG CAP PO SCH (09:17)
[2020-07-28] MEDS: Potassium Chloride 10 MEQ TAB PO SCH (09:17)
[2020-07-28] MEDS: Docusate 100 MG CAP PO SCH ×2 (09:17→21:13)
[2020-07-28] MEDS: Aspirin 325 MG TAB PO SCH (09:17)
[2020-07-28] MEDS: Promethazine 25 MG TAB PO PRN ×2 (09:17→17:51)
[2020-07-28] MEDS: Lisinopril 20 MG TAB PO SCH (09:17)
[2020-07-28] MEDS: Mometasone/Formoterol 60 PUFF AER INH SCH ×2 (09:18→21:13)
[2020-07-28] MEDS: Polyethylene Glycol 3350 17 GM Packet PO PRN (21:13)
[2020-07-28] MEDS: ALPRAZolam 0.5 MG TAB PO PRN (21:13)
[2020-07-28] MEDS: Melatonin 3 MG TAB PO PRN (21:19)
[2020-07-29] MEDS: HYDROcodone/Acetaminophen 10/325 mg Tablet PO PRN ×4 (03:56→20:24)
[2020-07-29] MEDS: Promethazine 25 MG TAB PO PRN ×3 (03:56→20:23)
[2020-07-29] MEDS: Ondansetron ODT 4 MG TAB SL PRN (08:17)
[2020-07-29] MEDS: Mometasone/Formoterol 60 PUFF AER INH SCH ×2 (09:00→20:19)
[2020-07-29] MEDS: Lisinopril 20 MG TAB PO SCH (09:17)
[2020-07-29] MEDS: Docusate 100 MG CAP PO SCH ×2 (09:18→20:23)
[2020-07-29] MEDS: DULoxetine 30 MG CAP PO SCH (09:18)
[2020-07-29] MEDS: Aspirin 325 MG TAB PO SCH (09:19)
[2020-07-29] MEDS: Potassium Chloride 10 MEQ TAB PO SCH (09:19)
[2020-07-29] MEDS: Hydrochlorothiazide 25 MG TAB PO SCH (09:19)
[2020-07-29] MEDS: Polyethylene Glycol 3350 17 GM Packet PO PRN (09:20)
[2020-07-29] MEDS: Milk Of Magnesia 30 ML UDCUP PO PRN (09:20)
[2020-07-29] MEDS ORDERED: BUPRENORPHINE PATCH TOP SCH (16:30)
[2020-07-29] MEDS: ALPRAZolam 0.5 MG TAB PO PRN (20:28)
[2020-07-30] MEDS: Promethazine 25 MG TAB PO PRN ×4 (02:22→22:09)
[2020-07-30] MEDS: HYDROcodone/Acetaminophen 10/325 mg Tablet PO PRN ×4 (02:23→22:09)
[2020-07-30 07:46] LABS: #Basophils 0.1 thou/uL (0.0-0.2); #Eosinphils 0.2 thou/uL (0.0-0.7); #Lymphocytes 2.1 thou/uL (1.20-3.40); #Monocytes 0.8 thou/uL (0.11-0.59); #Neutrophils 4.8 thou/uL (1.40-6.50); %Eosinophils 2.1 % (0.0-10.0); %Lymphocytes 26.4 % (21.0-51.0); %Monocytes 10.3 % (0.0-10.0); %Neutrophils 60.1 % (42.0-75.0); Hemoglobin 8.1 g/dL (12.0-16.0); Mean Corpuscular HGB CONC 31.1 g/dL (32.0-36.0); Mean Corpuscular Volume 96.5 fL (78.0-98.0); Mean Platelet Volume 5.5 fL (7.4-10.4); Platelet Count 409 thou/uL (130-400); RBC Distribution Width 15.7 % (11.5-14.5); Red Blood Cell (RBC) Count 2.69 mill/uL (4.20-5.40)
[2020-07-30] MEDS: DULoxetine 30 MG CAP PO SCH (08:46)
[2020-07-30] MEDS: Lisinopril 20 MG TAB PO SCH (08:46)
[2020-07-30] MEDS: Docusate 100 MG CAP PO SCH ×2 (08:47→20:41)
[2020-07-30] MEDS: Hydrochlorothiazide 25 MG TAB PO SCH (08:47)
[2020-07-30] MEDS: Aspirin 325 MG TAB PO SCH (08:47)
[2020-07-30] MEDS: Potassium Chloride 10 MEQ TAB PO SCH (08:47)
[2020-07-30] MEDS: Polyethylene Glycol 3350 17 GM Packet PO PRN (08:48)
[2020-07-30] MEDS: Mometasone/Formoterol 60 PUFF AER INH SCH ×2 (09:05→20:42)
[2020-07-30] MEDS: ALPRAZolam 0.5 MG TAB PO PRN (20:41)
[2020-07-30] MEDS: Melatonin 3 MG TAB PO PRN (22:09)
[2020-07-31] MEDS: HYDROcodone/Acetaminophen 10/325 mg Tablet PO PRN ×3 (04:15→20:20)
[2020-07-31] MEDS: Promethazine 25 MG TAB PO PRN ×3 (04:15→20:10)
[2020-07-31] MEDS: Lisinopril 20 MG TAB PO SCH (09:03)
[2020-07-31] MEDS: DULoxetine 30 MG CAP PO SCH (09:03)
[2020-07-31] MEDS: Hydrochlorothiazide 25 MG TAB PO SCH (09:03)
[2020-07-31] MEDS: Polyethylene Glycol 3350 17 GM Packet PO PRN (09:03)
[2020-07-31] MEDS: Docusate 100 MG CAP PO SCH ×2 (09:04→20:10)
[2020-07-31] MEDS: Mometasone/Formoterol 60 PUFF AER INH SCH ×2 (09:04→20:11)
[2020-07-31] MEDS: Potassium Chloride 10 MEQ TAB PO SCH (09:04)
[2020-07-31] MEDS: Aspirin 325 MG TAB PO SCH (09:04)
[2020-07-31] MEDS: ALPRAZolam 0.5 MG TAB PO PRN (15:51)
[2020-07-31] MEDS: rOPINIRole HCl 0.25 MG TAB PO SCH (20:10)
[2020-07-31] MEDS: Melatonin 3 MG TAB PO PRN (20:10)
[2020-08-01] MEDS: Promethazine 25 MG TAB PO PRN ×4 (03:06→22:03)
[2020-08-01] MEDS: HYDROcodone/Acetaminophen 10/325 mg Tablet PO PRN ×4 (03:06→22:03)
[2020-08-01] MEDS: Mometasone/Formoterol 60 PUFF AER INH SCH ×2 (08:41→20:07)
[2020-08-01] MEDS: Aspirin 325 MG TAB PO SCH (08:43)
[2020-08-01] MEDS: Docusate 100 MG CAP PO SCH ×2 (08:43→20:10)
[2020-08-01] MEDS: DULoxetine 30 MG CAP PO SCH (08:43)
[2020-08-01] MEDS: Potassium Chloride 10 MEQ TAB PO SCH (08:44)
[2020-08-01] MEDS: Hydrochlorothiazide 25 MG TAB PO SCH (08:44)
[2020-08-01] MEDS: Lisinopril 20 MG TAB PO SCH (08:45)
[2020-08-01] MEDS: ALPRAZolam 0.5 MG TAB PO PRN (19:38)
[2020-08-01] MEDS: rOPINIRole HCl 0.25 MG TAB PO SCH (20:10)
[2020-08-01] MEDS: Melatonin 3 MG TAB PO PRN (20:10)
[2020-08-02] MEDS: HYDROcodone/Acetaminophen 10/325 mg Tablet PO PRN ×4 (04:19→23:45)
[2020-08-02] MEDS: Promethazine 25 MG TAB PO PRN ×4 (04:19→23:45)
[2020-08-02] MEDS: Lisinopril 20 MG TAB PO SCH (08:13)
[2020-08-02] MEDS: Potassium Chloride 10 MEQ TAB PO SCH (08:13)
[2020-08-02] MEDS: Aspirin 325 MG TAB PO SCH (08:13)
[2020-08-02] MEDS: DULoxetine 30 MG CAP PO SCH (08:14)
[2020-08-02] MEDS: Hydrochlorothiazide 25 MG TAB PO SCH (08:14)
[2020-08-02] MEDS: Docusate 100 MG CAP PO SCH ×2 (08:14→20:46)
[2020-08-02] MEDS: Mometasone/Formoterol 60 PUFF AER INH SCH ×2 (08:17→20:49)
[2020-08-02] MEDS: rOPINIRole HCl 0.25 MG TAB PO SCH (20:46)
[2020-08-02] MEDS: ALPRAZolam 0.5 MG TAB PO PRN (20:47)
[2020-08-02] MEDS: Melatonin 3 MG TAB PO PRN (20:47)
[2020-08-03] MEDS: HYDROcodone/Acetaminophen 10/325 mg Tablet PO PRN ×3 (06:20→18:36)
[2020-08-03] MEDS: Promethazine 25 MG TAB PO PRN ×3 (06:21→18:36)
[2020-08-03] MEDS: Polyethylene Glycol 3350 17 GM Packet PO PRN (08:42)
[2020-08-03] MEDS: Aspirin 325 MG TAB PO SCH (08:44)
[2020-08-03] MEDS: DULoxetine 30 MG CAP PO SCH (08:44)
[2020-08-03] MEDS: Docusate 100 MG CAP PO SCH (08:44)
[2020-08-03] MEDS: Potassium Chloride 10 MEQ TAB PO SCH (08:45)
[2020-08-03] MEDS: Hydrochlorothiazide 25 MG TAB PO SCH (08:45)
[2020-08-03] MEDS: Lisinopril 20 MG TAB PO SCH (08:45)
[2020-08-03] MEDS: Mometasone/Formoterol 60 PUFF AER INH SCH (08:50)
[2020-08-03] MEDS: Ondansetron ODT 4 MG TAB SL PRN (09:38)
[2020-08-03] MEDS ORDERED: FLU VACC QS2020-21(65YR UP)/PF 240 MCG/0.7 ML SYRINGE IM ONE (16:00)
[2020-08-03 17:17] VITALS: BP 119/77; TEMP 98.3
--- NOTE | 2020-08-04 03:11 | DIS ---
DATE OF ADMISSION: 07/22/2020 DATE OF DISCHARGE: 08/03/2020 ADMISSION DIAGNOSIS: Status post left total hip replacement. SECONDARY DIAGNOSES: Hypertension, asthma, chronic back pain, anxiety with depression, history of non-Hodgkin's lymphoma, constipation, and normocytic anemia. PROCEDURES: None. HOSPITAL COURSE: A 69-year-old female transitioned from the [facility] in [place] to our facility to participate with Physical Therapy and Occupational Therapy status post left total hip replacement via Dr. Chavarria. The patient has chronic back pain and compromised mobility, which prompted her transition to our facility to improve upon her functional status prior to returning to her home setting. The patient had no significant setbacks during her stay and steadily improved in regard to her ability to transfer and mobilize. It has been suggested for the patient to follow up for further therapy with outpatient therapy. However, this is not covered well by her insurance status. She has elected to proceed with further therapy via [facility] instead. During the patient's stay, she expressed the concerns in regard to potential reactivation of her history regarding non-Hodgkin's lymphoma which has notably been in remission for years. Secondary to this, lactate dehydrogenase level was obtained and noted to be mildly elevated at 241. The patient's concerns related to this are stating that she had mild tachycardia and elevated blood pressure readings similar to what she had years ago. She has been advised that she may pursue outpatient followup with Hematology and Oncology. At this time, the patient has met the goal set forth by therapy in order to be able to transition back to her home setting with further transition of care to be provided by [facility]. DISPOSITION: The patient will be discharged in her home setting and follow up with Orthopedic Surgery, Dr. Chavarria, tomorrow. She will have [facility] for further therapy. She may follow up with myself in the clinic next week. DISCHARGE MEDICATIONS: Include: 1. DuoNeb 3 mL nebs q.4 hours p.r.n. 2. Alprazolam 0.5 mg daily as needed. 3. Aspirin 325 mg daily. 4. Duloxetine 60 mg daily. 5. Potassium chloride 10 mEq daily. 6. Lisinopril 20 mg daily. 7. Hydrochlorothiazide 25 mg daily. 8. Advair 100-50 one inhalation b.i.d. 9. Docusate one capsule b.i.d. 10. Zofran 4 mg sublingual q.8 hours p.r.n. 11. Tizanidine 4 mg q.8 hours p.r.n. 12. Phenergan 25 mg q.6 hours p.r.n. 13. Belbuca 600 mcg patch 20 mcg/hour, applied weekly. TIME SPENT: Total time in preparation and discharge is 32 minutes. Job ID: [id number] MTDD
== END 2020-08-03 19:15 | disposition home or self-care (01) | DRG 561 ==
LOC: BURMED 16:05
PROVIDERS: ADMIT Family Medicine; ATTEND Family Medicine
DX: Z47.1 Aftercare following joint replacement surgery (principal); I10 Essential (primary) hypertension; J45.909 Unspecified asthma, uncomplicated; F41.9 Anxiety disorder, unspecified; F32.9 Major depressive disorder, single episode, unspecified; K59.00 Constipation, unspecified; M54.9 Dorsalgia, unspecified; D64.9 Anemia, unspecified; Z88.8 Allergy status to other drugs, medicaments and biological substances; Z85.72 Personal history of non-Hodgkin lymphomas; Z88.2 Allergy status to sulfonamides; Z88.6 Allergy status to analgesic agent; Z20.828 Contact with and (suspected) exposure to other viral communicable diseases
CPT/HCPCS: 36415; 80053; 83615; 85025; 87635; 90471; 90662; 94664; G0008; Q0162; Q0169; U0003

== ENCOUNTER 2020-08-09 20:55 | Emergency (ER) | payer MEDICARE, OTHER ==
[2020-08-09] MEDS ORDERED: Dexamethasone 4 MG TAB ONE (21:46)
[2020-08-09] MEDS ORDERED: Aspirin Chewable 81 MG TAB ONE (22:00)
[2020-08-09] MEDS ORDERED: Azithromycin 250 MG TAB ONE (22:00)
[2020-08-09] MEDS ORDERED: Azithromycin 250 MG TAB PO SCH (22:15)
--- NOTE | 2020-08-10 07:22 | RAD ---
PORTABLE CHEST: DATE: 08/09/2020. FINDINGS: An AP portable film at 2150 is compared with a 05/16/2019 study. The heart is normal in size. The infiltrate seen previously has resolved. Some minor atelectasis or scarring is noted in the right middle lobe. There is a little lingular streaking, but I believe thi s is mostly scarring. The upper lobes are clear. There are no effusions. IMPRESSION: No definite acute finding. POS: HOME
== END 2020-08-09 22:37 | disposition home or self-care (01) ==
LOC: BURERS 20:55
DX: U07.1 COVID-19 (principal); J45.901 Unspecified asthma with (acute) exacerbation; I10 Essential (primary) hypertension; F32.9 Major depressive disorder, single episode, unspecified; F41.9 Anxiety disorder, unspecified; Z79.899 Other long term (current) drug therapy; Z79.891 Long term (current) use of opiate analgesic; Z79.82 Long term (current) use of aspirin
CPT/HCPCS: 71045; J8540

== ENCOUNTER 2021-05-08 22:01 | Emergency (ER) | payer MEDICARE ==
[2021-05-08] MEDS ORDERED: predniSONE 20 MG TAB ONE (22:43)
== END 2021-05-08 23:40 | disposition home or self-care (01) ==
LOC: BURERS 22:01
DX: J45.901 Unspecified asthma with (acute) exacerbation (principal); Z79.899 Other long term (current) drug therapy; I10 Essential (primary) hypertension
CPT/HCPCS: 71046; 94640; J7512; J7620

== ENCOUNTER 2021-06-23 17:25 | Emergency (ER) | payer MEDICARE ==
[2021-06-23 19:47] LABS: #Basophils 0.1 thou/uL (0.0-0.2); #Eosinphils 0.2 thou/uL (0.0-0.7); #Lymphocytes 2.6 thou/uL (1.20-3.40); #Monocytes 0.6 thou/uL (0.11-0.59); #Neutrophils 6.6 thou/uL (1.40-6.50); %Basophils 1.2 % (0.0-1.0); %Eosinophils 2.1 % (0.0-10.0); %Lymphocytes 25.4 % (21.0-51.0); %Monocytes 5.8 % (0.0-10.0); %Neutrophils 65.4 % (42.0-75.0); Hemoglobin 13.1 g/dL (12.0-16.0); Mean Corpuscular HGB CONC 32.6 g/dL (32.0-36.0); Mean Corpuscular Hemoglobin 29.3 pg (27.0-31.0); Mean Corpuscular Volume 89.8 fL (78.0-98.0); Mean Platelet Volume 6.4 fL (7.4-10.4); Platelet Count 301 thou/uL (130-400); RBC Distribution Width 12.6 % (11.5-14.5); Red Blood Cell (RBC) Count 4.46 mill/uL (4.20-5.40); White Blood Cell (WBC) Count 10.1 thou/uL (4.8-10.8)
[2021-06-23 20:03] LABS: ALT (SGPT) 20 U/L (8-55); AST (SGOT) 39 U/L (5-34); Alkaline Phosphatase 82 U/L (40-110); Anion Gap 16 mmol/L (10-20); BUN (Urea Nitrogen) 17 mg/dL (9.8-20.1); Bilirubin, Total 0.3 mg/dL (0.2-1.2); Calc. Creatinine Clearance 0 mL/min (70-130); Calcium 9.5 mg/dL (7.8-10.44); Carbon Dioxide 35 mmol/L (23-31); Chloride 89 mmol/L (98-107); Globulin 3.6 g/dL (2.4-3.5); Glucose 122 mg/dL (80-115); Potassium 3.1 mmol/L (3.5-5.1); Protein, Total 7.6 g/dL (5.8-8.1); Sodium 137 mmol/L (136-145)
[2021-06-23 20:39] LABS: Bilirubin Negative (Negative); Blood, Urine Negative (Negative); Clarity Clear (Clear); Glucose, Urine (Dipstick) Negative (Negative); Ketone, Urine Negative (Negative); Leukocyte Negative (Negative); Nitrite Negative (Negative); Protein, Urine (Dipstick) Negative (Neg-Trace); Urobilinogen 0.2 mg/dL (Less than 2); pH, Urine 6.5 (5.0-9.0)
[2021-06-23] MEDS ORDERED: Potassium Chloride 20 MEQ TAB ONE (22:08)
[2021-06-23] MEDS ORDERED: Doxycycline 100 MG CAP ONE (22:11)
[2021-06-23] MEDS ORDERED: predniSONE 20 MG TAB ONE (22:11)
== END 2021-06-23 22:32 | disposition home or self-care (01) ==
LOC: BURERS 17:25
DX: J44.1 Chronic obstructive pulmonary disease with (acute) exacerbation (principal); E87.6 Hypokalemia; Z86.16 Personal history of COVID-19; I10 Essential (primary) hypertension; Z79.899 Other long term (current) drug therapy
CPT/HCPCS: 36415; 71275; 80053; 81003; 83605; 83880; 84484; 85025; 85379; 93005; 94760; J7512

== ENCOUNTER 2021-11-21 19:53 | Emergency (ER) | payer MEDICARE ==
[2021-11-21 20:25] LABS: Hemoglobin 13.9 g/dL (12.0-16.0); Mean Corpuscular HGB CONC 32.4 g/dL (32.0-36.0); Mean Corpuscular Hemoglobin 28.1 pg (27.0-31.0); Mean Corpuscular Volume 86.6 fL (78.0-98.0); Mean Platelet Volume 6.4 fL (7.4-10.4); Platelet Count 372 thou/uL (130-400); RBC Distribution Width 12.9 % (11.5-14.5); Red Blood Cell (RBC) Count 4.95 mill/uL (4.20-5.40); White Blood Cell (WBC) Count 15.2 thou/uL (4.8-10.8)
[2021-11-21] MEDS ORDERED: Nitroglycerin 0.4 MG TAB 1 EACH ONE (20:26)
[2021-11-21] MEDS ORDERED: Acetaminophen 500 MG TAB ONE (20:34)
[2021-11-21 20:39] LABS: ALT (SGPT) 14 U/L (8-55); AST (SGOT) 16 U/L (5-34); Albumin 4.3 g/dL (3.4-4.8); Alkaline Phosphatase 86 U/L (40-110); Anion Gap 15 mmol/L (10-20); BUN (Urea Nitrogen) 15 mg/dL (9.8-20.1); Bilirubin, Total 0.4 mg/dL (0.2-1.2); Calc. Creatinine Clearance 0 mL/min (70-130); Calcium 9.4 mg/dL (7.8-10.44); Carbon Dioxide 29 mmol/L (23-31); Chloride 97 mmol/L (98-107); Glucose 127 mg/dL (80-115); Potassium 3.4 mmol/L (3.5-5.1); Protein, Total 8.3 g/dL (5.8-8.1); Sodium 138 mmol/L (136-145)
[2021-11-21 21:21] LABS: Lymphocytes 22 % (21-51); MDiff Complete? YES; Monocytes 4 % (0-10); Neutrophil 74 % (42-75); Platelet Morphology Comment Appears Adequate; RBC Morphology Normal
[2021-11-21] MEDS ORDERED: Furosemide 40 MG TAB ONE (21:34)
[2021-11-21 22:51] LABS: Troponin I Less than 0.010 ng/mL (< 0.028)
== END 2021-11-21 23:15 | disposition home or self-care (01) ==
LOC: BURERS 19:53
DX: R07.89 Other chest pain (principal); I11.0 Hypertensive heart disease with heart failure; I50.9 Heart failure, unspecified; J45.909 Unspecified asthma, uncomplicated; Z79.84 Long term (current) use of oral hypoglycemic drugs; Z79.899 Other long term (current) drug therapy
CPT/HCPCS: 71045; 80053; 83880; 84484; 85025; 93005; 94760